=== PATIENT | female | born 1995 | race African-American/Black ===

== ENCOUNTER 2016-11-18 18:56 | Emergency (ER) | payer SELFPAY ==
[2016-11-18 19:16] VITALS: BP 143/82; PULSE 91; TEMP 97.7; BMI 24.1
[2016-11-18] MEDS ORDERED: ONDANSETRON 4 MG/2 ML VIAL IVPUSH ONE (19:27)
[2016-11-18] MEDS ORDERED: SODIUM CHLORIDE 0.9% 1000 ML INFUS.BAG IV ONE (19:28)
[2016-11-18] MEDS ORDERED: ONDANSETRON 4 MG/2 ML VIAL ONE (19:44)
[2016-11-18 19:52] LABS: BASOPHIL 0.4 % (0-2.0); EOSINOPHIL 0.5 % (0-4.5); MCH 26.5 pg (25.7-33.7); MCHC 32.4 g/dl (32.0-36.0); MEAN CELL VOLUME 81.6 fl (80-96); PLATELET COUNT 261 K/MM3 (134-434); RDW 13.4 % (11.6-15.6)
--- NOTE | 2016-11-18 20:04 | PDOC ---
History of Present Illness <Randee Jasso - Last Filed: 11/18/16 22:39> - General History Source: Patient, Family, Old Records Exam Limitations: No Limitations - History of Present Illness Initial Comments: The patient is a 21 year old female with no significant past medical history, who presents to the emergency department today for further evaluation of nausea , vomiting, and diarrhea today. The patient states that she has had more than 10 episodes of vomiting and that her last few episodes contained some blood. The patient reports 4 episodes of diarrhea and is unsure whether or not there was blood in her stool. The patient states that he symptoms are similar to the symptoms she experienced when previously . The patient states that her LMP was in mid September. She does not have an OBGYN and she has not presented to this ED previously for these symptoms. The patient notes that if she is , this is an unwanted . The patient denies fever, chills, and sweats. The patient denies dysuria, urgency, or hesitancy The patient denies chest pain, cough, and shortness of breath. PAST SURGICAL HISTORY: Reports marijuana uses 5 times weekly. ALLERGIES: Ibuprofen <Jeanmarie Guillen - Last Filed: 11/18/16 23:41> - General Chief Complaint: Nausea/Vomiting Stated Complaint: VOMITING/DIARRHEA Time Seen by Provider: 11/18/16 19:20 Past History - Past Medical History Other medical history: pt denies - Psycho/Social/Smoking Cessation Hx Suicidal Ideation: No Smoking History: Never smoked Number of Cigarettes Smoked Daily: 5 Information on smoking cessation initiated: No Hx Alcohol Use: No Drug/Substance Use Hx: Yes (marijuana) Substance Use Type: Marijuana <Randee Jasso - Last Filed: 11/18/16 22:39> <Jeanmarie Guillen - Last Filed: 11/18/16 23:41> - Past Medical History Allergies/Adverse Reactions: Allergies Allergy/AdvReac Type Severity Reaction Status Date / Time ibuprofen Allergy Severe Hives Verified 11/18/16 19:16 Review of Systems - Review of Systems Able to Perform ROS?: Yes Comments:: GENERAL/CONSTITUTIONAL: No fever or chills. No weakness. HEAD, EYES, EARS, NOSE AND THROAT: No change in vision. No ear pain or discharge. No sore throat. GASTROINTESTINAL: (+) nausea, vomiting, diarrhea. No constipation. GENITOURINARY: No dysuria, frequency, or change in urination. CARDIOVASCULAR: No chest pain or shortness of breath. RESPIRATORY: No cough, wheezing, or hemoptysis. MUSCULOSKELETAL: No joint or muscle swelling or pain. No neck or back pain. SKIN: No rash NEUROLOGIC: No headache, vertigo, loss of consciousness, or change in strength/ sensation. ENDOCRINE: No increased thirst. No abnormal weight change. HEMATOLOGIC/LYMPHATIC: No anemia, easy bleeding, or history of blood clots. ALLERGIC/IMMUNOLOGIC: No hives or skin allergy. <Jeanmarie Guillen - Last Filed: 11/18/16 23:41> *Physical Exam - Vital Signs Last Vital Signs Temp Pulse Resp BP Pulse Ox 97.7 F 91 H 18 143/82 100 11/18/16 19:12 11/18/16 19:12 11/18/16 19:12 11/18/16 19:12 11/18/16 19:12 <Randee Jasso - Last Filed: 11/18/16 22:39> - Vital Signs Last Vital Signs Temp Pulse Resp BP Pulse Ox 97.7 F 91 H 18 143/82 100 11/18/16 19:12 11/18/16 19:12 11/18/16 19:12 11/18/16 19:12 11/18/16 19:12 - Physical Exam Comments: GENERAL: Awake, alert, and fully oriented, in no acute distress HEAD: No signs of trauma EYES: PERRLA, EOMI, sclera anicteric, conjunctiva clear ENT: Auricles normal inspection, nares patent, Moist mucosa NECK: Normal ROM, supple, no lymphadenopathy, JVD, or masses LUNGS: Breath sounds equal, clear to auscultation bilaterally. No wheezes, and no crackles HEART: Regular rate and rhythm, normal S1 and S2, no murmurs, rubs or gallops ABDOMEN: (+) Suprapubic and LLQ tenderness on palpation. Soft, normoactive bowel sounds. No guarding, no rebound. No masses EXTREMITIES: Normal range of motion, no edema. No clubbing or cyanosis. No cords, erythema, or tenderness NEUROLOGICAL: Normal speech SKIN: Warm, Dry, normal turgor, no rashes or lesions noted. <Jeanmarie Guillen - Last Filed: 11/18/16 23:41> Procedures - Bedside Ultrasound Bedside Ultrasound: entry level accounting clerk (transab bedside us ob, 13wk 5 day IUP, movement noted, FHR 141 bpm.) <Randee Jasso - Last Filed: 11/18/16 22:39> ED Treatment Course - LABORATORY CBC & Chemistry Diagram: 11/18/16 19:33 11/18/16 19:33 - ADDITIONAL ORDERS Additional order review: 11/18/16 19:33 RBC 4.43 MCV 81.6 MCHC 32.4 RDW 13.4 MPV 9.0 Neutrophils % 76.0 Lymphocytes % 18.0 Monocytes % 5.1 Eosinophils % 0.5 Basophils % 0.4 - Medications Given in the ED: ED Medications Discontinued Medications Generic Name Dose Route Start Last Admin Trade Name Freq PRN Reason Stop Dose Admin Ondansetron HCl 4 mg 11/18/16 19:27 11/18/16 19:49 Zofran Injection IVPUSH 11/18/16 19:28 4 mg ONCE ONE Administration Sodium Chloride 1,000 ml 11/18/16 19:28 11/18/16 19:49 Normal Saline - IV 11/18/16 19:29 1,000 ml ONCE ONE Administration <Randee Jasso - Last Filed: 11/18/16 22:39> - LABORATORY CBC & Chemistry Diagram: 11/18/16 19:33 11/18/16 19:33 - ADDITIONAL ORDERS Additional order review: Laboratory Results 11/18/16 11/18/16 19:56 19:33 Urine Color Yellow Urine Appearance Cloudy Urine pH 6.0 Urine Protein 2+ H Urine Glucose (UA) Negative Urine Ketones 2+ H Urine Blood Negative Urine Nitrite Negative Urine Bilirubin Negative Urine Urobilinogen Negative Ur Leukocyte Esterase Negative Urine HCG, Qual Positive 11/18/16 19:33 RBC 4.43 MCV 81.6 MCHC 32.4 RDW 13.4 MPV 9.0 Neutrophils % 76.0 Lymphocytes % 18.0 Monocytes % 5.1 Eosinophils % 0.5 Basophils % 0.4 - RADIOLOGY Radiograph Interpretation: 11/18/16 23:41 EXAM: X-ray chest IMAGES: 3 INDICATION: Hematemesis. Left free air DATE OF SERVICE: 2016-11-18 23:09:13.0 COMPARISON: none FINDINGS: Cardiomediastinal silhouette is normal. Lungs are clear. No pleural effusion. No free air. IMPRESSION: Normal chest. THIS DOCUMENT HAS BEEN ELECTRONICALLY SIGNED Pablo Huber MD 11/18/2016 23:34 EST - Medications Given in the ED: ED Medications Discontinued Medications Generic Name Dose Route Start Last Admin Trade Name René PRN Reason Stop Dose Admin Ondansetron HCl 4 mg 11/18/16 19:27 11/18/16 19:49 Zofran Injection IVPUSH 11/18/16 19:28 4 mg ONCE ONE Administration Sodium Chloride 1,000 ml 11/18/16 19:28 11/18/16 19:49 Normal Saline - IV 11/18/16 19:29 1,000 ml ONCE ONE Administration <Jeanmarie Guillen - Last Filed: 11/18/16 23:41> Medical Decision Making - Medical Decision Making 11/18/16 19:57 21 yo F with questionable ( LMP mid september 2016) here wtih intractable n/v and diarreha. has had several episodes of emesis today >10, last few wtih blood streaks. loose watery stools, x 4 today. no recent abx, no recent travel. has not had followup for , did not take test at home. does smoke weed almost daily. denies other drug or alcohol use. no vaginal discharge or bleeding, abd pain crampy, lower abd. no mod factors. on exam awake , alert dry mucous membranes. lungs clear heart RRR abd soft suprapubic ttp. , llq ttp, no rebound or guarding. differnetial: pyelo, ovarian cyst, , colitis, diveritculitis ( less likely base on age) substance induced emesis, dehydration, pancreatitis. plan antiemetics, ivf, labs ua ucg possible us vs. ct pending [email or web address] 11/18/16 21:18 11/18/16 22:39 bedside ultrasound transabdominal OB. heart rate noted 141 bpm, movement noted. CRL 13 weeks 5 days, and BPD consistent. pt states she feels better would like to go home. tolerating PO. given numbner for Dr Toledo for followup. encouraged to return for continued vomiting , and obstain from weed while . told to take vitamins. <Randee Jasso - Last Filed: 11/18/16 22:39> *DC/Admit/Observation/Transfer - Discharge Dispostion Admit: No <Randee Jasso - Last Filed: 11/18/16 22:39> - Attestations Scribe Attestion: Documentation prepared by Jeanmarie Guillen, acting as biomedical engineering internship for Randee Jasso MD. <Jeanmarie Guillen - Last Filed: 11/18/16 23:41> Diagnosis at time of Disposition: Hyperemesis affecting , antepartum - Referrals Referrals: Weston Henry MD [Staff Physician] - - Patient Instructions Printed Discharge Instructions: Hyperemesis Gravidarum, Medications and Additional Instructions: you should not smoke while . avoid alcohol while . drink plenty of liquids. you should start taking vitamins daily. they are available over the counter at any pharmacy. follow up with a matlab developer, see DR. Toledo referral information. call to schedule appointment. return for persistant vomiting , feeling dizzy, vaginal bleeding or any concerns.
[2016-11-18 20:06] LABS: URINE APPEARANCE CLOUDY; URINE BILIRUBIN NEGATIVE (NEGATIVE); URINE BLOOD NEGATIVE (NEGATIVE); URINE COLOR YELLOW; URINE GLUCOSE (UA) NEGATIVE (NEGATIVE); URINE KETONE 2+ (NEGATIVE); URINE LEUK ESTERASE NEGATIVE (NEGATIVE); URINE NITRITE NEGATIVE (NEGATIVE); URINE PROTEIN 2+ (NEGATIVE); URINE UROBILINOGEN NEGATIVE E.U./dl (0.2-1.0)
[2016-11-18 20:30] LABS: ALBUMIN 4.2 g/dl (3.4-5.0); ANION GAP 13 (8-16); CALCIUM 9.6 mg/dL (8.5-10.1); CO2 22 mmol/L (21-32); COCKROFT - GAULT 153.9945; CREATININE 0.6 mg/dL (0.55-1.02); GLUCOSE,RANDOM 80 mg/dL (74-106); SGOT/AST 17 U/L (15-37); SGPT/ALT 14 U/L (12-78); TOT PROT 7.6 g/dl (6.4-8.2)
[2016-11-18] MEDS ORDERED: DEXTROSE 5%-0.45% SALINE 1,000 ML IV SCH (20:30)
[2016-11-18] MEDS ORDERED: PANTOPRAZOLE SODIUM 100 ML IVPB ONE (20:35)
[2016-11-18] MEDS ORDERED: PANTOPRAZOLE SODIUM 40 MG in SODIUM CHLORIDE 100 ML IVPB ONE (20:41)
[2016-11-18 20:45] LABS: ALK PHOS 66 U/L (45-117)
[2016-11-18] MEDS ORDERED: METOCLOPRAMIDE HCL INJECTION 10 MG/2 ML VIAL IVPB ONE (21:18)
[2016-11-18] MEDS ORDERED: METOCLOPRAMIDE HCL INJECTION 10 MG/2 ML VIAL ONE (21:20)
[2016-11-18 21:52] LABS: URINE BACTERIA RARE /hpf (NONE SEEN); URINE MUCUS MANY; URINE RBC 2 /hpf (0-3); URINE WBC 4 /hpf (3-5)
== END 2016-11-18 23:43 | disposition home or self-care (01) ==
LOC: JER 18:56
PROC: 3E033GC Introduction of Other Therapeutic Substance into Peripheral Vein, Percutaneous Approach (ICD-10-PCS; principal; 2016-11-18)
PROC: 3E0337Z Introduction of Electrolytic and Water Balance Substance into Peripheral Vein, Percutaneous Approach (ICD-10-PCS; 2016-11-18)
DX: O21.0 Mild hyperemesis gravidarum (principal); Z3A.00 Weeks of gestation of pregnancy not specified
CPT/HCPCS: 36415; 71010-TC; 80053; 81003; 81015; 83690; 84702; 84703; 85025; 99283-25